=== PATIENT | female | born 1995 | race Caucasian/White ===

== ENCOUNTER 2024-06-17 10:15 | Outpatient (RCR) | payer OTHER, SELFPAY ==
[2024-06-16 11:55] VITALS: BMI 46.5
[2024-06-16 11:56] VITALS: BP 100/70; PULSE 88; TEMP 36.9
--- NOTE | 2024-06-16 13:49 | PC.ADMIT ---
Patient is a 28 year old single female who was referred to [facility] by her therapist d/t increased depression and anxiety sxs. In addition, according to records, patient struggling with executive functioning and challenges regarding ADHD exacerbation causing her to struggle to attend work, follow through with responsibilities, and manage ADL's. Patient reports she took a [place] from work since end of April 2024 until mid July 2024. Reports having a good support system that includes, friends and house mate and as stressful as they are my family. Patient is alert and oriented x4. She is calm and cooperative. She presented with depressed mood and anxious affect. Regarding SI, patient reports No SI currently, patient stated, Sometimes, in the last few weeks. If I'm really stuck and feeling bad or thought pattern's it is calming imaging being . Its not so much like a specific way of killing myself it is like that would be a relief . Denied having any plans or intention of killing herself. She was given a copy of her safety plan if needed. Patient reports family stress and job stress. She is unable to identify any triggers. She reports she has been working at the same place of employment for the past 6 years. Medications reconciled with patient and patient's pharmacy. She reports taking medications as prescribed. She reports changes in ADHD medication with discontinuation of long acting Adderall to shorter acting Adderall. Patient denied struggling with any substance issues.
--- NOTE | 2024-06-17 13:57 | P.HPPSP_ITS ---
[facility] Date of Service: 06/17/24 Chief Complaint: ADHD,MDD Sources of Information: patient interviewed and chart reviewed HPI Narrative: As per nursing admission note on 06/16/2024: 28 year old single female who was referred to [facility] by her therapist d/t jamarcus ncreased depression and anxiety sxs. In addition, according to records, patient struggling with executive functioning and challenges regarding ADHD exacerbation causing her to struggle to attend work, follow through with responsibilities, and manage ADL's. Patient reports she took a EUSE[place]IA from work since end of April 2024 until mid July 2024. Reports having a good support system that includes, friends and house mate and as stressful as they are my family. Patient is alert and oriented x4. She is calm and cooperative. She presented with depressed mood and anxious affect. Regarding SI, patient reports No SI currently, patient stated, Sometimes, in the last few weeks. If I'm really stuck and feeling bad or thought pattern's it is calming imaging being . Its not so much like a specific way of killing myself it is like that would be a relief . Denied having any plans or intention of killing herself. She was given a copy of her safety plan if needed. Patient reports family stress and job stress. She is unable to identify any triggers. She reports she has been working at the same place of employment for the past 6 years. Medications reconciled with patient and patient's pharmacy. She reports taking medications as prescribed. She reports changes in ADHD medication with discontinuation of long acting Adderall to shorter acting Adderall. Patient denied struggling with any substance issues. Today: [facility] extended [facility] 30 mg was once daily on 05/23/2024, and appears to have been switched to immediate release 20 mg twice daily picked up 06/08/2024 for 30 days. [facility] Medical History (Updated 06/16/24 @ 13:51 by Valentine Monteiro RN) Migraine Asthma Chronic thoracic spine pain Diagnostics Vital Signs (24Hr): BMI result Body Mass Index 46.5 Meds/Allergies Meds Home Medications ?Medication ?Instructions ?Recorded ?Confirmed ?Type amitriptyline 10 mg tablet 10 mg PO BEDTIME 06/16/24 06/16/24 History azelastine 137 mcg (0.1 %) nasal 2 spray intranasal BID 06/16/24 06/16/24 History spray dextroamphetamine-amphetamine 20 See Rx Instructions .Route .COMPLEX 06/16/24 06/16/24 History mg tablet epinephrine 0.3 mg/0.3 mL See Rx Instructions .Route 06/16/24 06/16/24 History injection, auto-injector (EpiPen) .COMPLEX PRN Anaphylaxis fluoxetine 40 mg capsule (Prozac) 40 mg PO DAILY 06/16/24 06/16/24 History Allergies Allergies Allergy/AdvReac Type Severity Reaction Status Date / Time house dust Allergy Congestion, Verified 06/16/24 11:55 post nasal drip, itchy eyes and mouth. pollen extracts Allergy Congestion, Verified 06/16/24 11:54 post nasal drip, itchy eyes and mouth. Assessment & Plan Certification I certify that partial hospital treatment is medically necessary due to the symptoms and problems resulting from the patient's mental illness and the failu re to treat the patient at the partial hospital level of care would likely result in the patient requiring inpatient psychiatric care which could not be prevented at a less intensive level of care. Time Spent With Patient Time: Total time managing care of this patient today ____ minutes.
--- NOTE | 2024-06-18 09:55 | HO.PHP ---
Felicia called [facility] this morning expressing interest to discharge from the program. Barrel Planer called pt back, at roughly 9:45 am. Felicia stated she felt some of the groups brought up uncomfortable emotions for her, stated she struggled to share in groups and did not know what to say so felt maybe the program is not for her. Pt reports this is her first time at [facility], sought help for lack of motivation and depression and acknowledged she was not sure if she should discharge, stating she felt she did need help but did not know what. Pt was encouraged to continue at [facility], provided more info on the [facility] program and reassurance regarding her anxiety in groups. Pt agreed to continue at [facility] but will take today and tomorrow off and return Saturday. Pt denied current SI, reports she is safe.
== END 2024-06-17 23:59 | disposition home or self-care (01) ==
LOC: HO.PHPA 10:15
PROVIDERS: Visit Provider Psychiatry & Neurology Psychiatry
DX: F33.1 Major depressive disorder, recurrent, moderate (principal); F43.89 Other reactions to severe stress; F90.0 Attention-deficit hyperactivity disorder, predominantly inattentive type; F41.1 Generalized anxiety disorder
CPT/HCPCS: 90791; 90853